=== PATIENT | male | born 2000 | race Caucasian/White ===

== ENCOUNTER 2019-11-30 21:56 | Emergency (ER) | payer SELFPAY ==
[2019-11-30] MEDS ORDERED: Sodium Chloride 0.9% 10 ML Syringe FLUSH PRN (22:05)
[2019-11-30] MEDS ORDERED: Sodium Chloride 0.9% 2.5 ML Syringe FLUSH PRN (22:05)
[2019-11-30 22:39] LABS: BLOOD UREA NITROGEN,BUN 16 mg/dL (7.0-18.0); CARBON DIOXIDE,CO2 24.1 mmol/L (21.0-32.0); CHLORIDE,CL 103 mmol/L (98-107); GLUCOSE RANDOM 63 mg/dL (74-106); POTASSIUM,K 3.1 mmol/L (3.5-5.1); SODIUM,NA 141 mmol/L (136-148)
--- NOTE | 2019-11-30 22:44 | CR ---
Chest: 2 views of the chest were obtained. Comparison: Prior chest x-ray of 02/16/13. Heart size and mediastinum are normal. Lungs are clear with no acute parenchymal change. Bony structures are unremarkable. Impression: 1. Nothing acute is seen on 2 view chest x-ray. Diagnostic code #1 This report was dictated in MDT
[2019-11-30 22:56] VITALS: BP 121/81; PULSE 83
--- NOTE | 2019-11-30 23:24 | EDM.PDOC ---
ED HPI GENERAL MEDICAL PROBLEM - General Chief Complaint: Chest Pain Stated Complaint: CHEST PAIN Time Seen by Provider: 11/30/19 21:58 Source of Information: Reports: Patient History Limitations: Reports: No Limitations - History of Present Illness INITIAL COMMENTS - FREE TEXT/NARRATIVE: 19-year-old male with no past medical history presenting with chest pressure and transient numbness to the lips and leg. Patient states that he was involved in a stressful argument with family members when he began experiencing chest pressure, this started about 1.5 to 2 hours ago. He had a similar episode for 5 days ago when he received some bad news about his grandmother breaking her hip. Earlier this evening after the chest pressure started, he began feeling some numbness around his lips and his left leg, this has since resolved and has not come back. He denies any shortness of breath, fever, cough, hemoptysis, recent leg swelling or pain. No prior history of venous thromboembolism, malignancy, recent surgery or trauma or immobilization. No history of coronary artery disease or any medical problems. No self treatment prior to arrival, no other complaints. - Related Data Allergies Allergy/AdvReac Type Severity Reaction Status Date / Time No Known Allergies Allergy Verified 11/30/19 22:23 Home Meds: Home Meds . [No Known Home Meds] 05/31/16 [History] Past Medical History HEENT History: Reports: None Cardiovascular History: Reports: None Respiratory History: Reports: None Gastrointestinal History: Reports: None Genitourinary History: Reports: None Musculoskeletal History: Reports: None Neurological History: Reports: None Psychiatric History: Reports: Anxiety Endocrine/Metabolic History: Reports: None Hematologic History: Reports: None Immunologic History: Reports: None Oncologic (Cancer) History: Reports: None Dermatologic History: Reports: None - Infectious Disease History Infectious Disease History: Reports: None Social & Family History - Family History Family Medical History: Noncontributory - Tobacco Use Smoking Status *Q: Current Every Day Smoker Years of Tobacco use: 3 Packs/Tins Daily: 1 - Caffeine Use Caffeine Use: Reports: Soda - Recreational Drug Use Recreational Drug Use: No ED ROS GENERAL - Review of Systems Review Of Systems: See Below Constitutional: Denies: Fever, Chills HEENT: Reports: No Symptoms Respiratory: Denies: Shortness of Breath Cardiovascular: Reports: Chest Pain. Denies: Edema, Lightheadedness, Palpitations, Syncope Endocrine: Reports: No Symptoms GI/Abdominal: Denies: Abdominal Pain, Nausea, Vomiting : Denies: Flank Pain Musculoskeletal: Denies: Back Pain Skin: Denies: Diaphoresis Neurological: Denies: Headache Psychiatric: Reports: No Symptoms ED EXAM, GENERAL - Physical Exam Exam: See Below Free Text/Narrative:: Vital signs reviewed. Nursing notes reviewed. Constitutional: Awake, alert, non-distressed. Head: Normocephalic, atraumatic. Eyes: EOMI, conjunctiva normal, no discharge, no scleral icterus. Ears, Nose, Throat: External ears and nose normal, moist oral mucosa. Cardiovascular: 2+ radial pulses bilaterally, capillary refill less than 2 seconds. RRR, no MRG. No lower extremity edema. Pulmonary: normal work of breathing, no accessory muscle use. CTA BL Abdomen/GI: Soft, nontender, nondistended, no guarding or rigidity, no masses. Musculoskeletal: No deformities. Integumentary: Appropriate color for ethnicity, warm, dry, no pallor or jaundice, no rash. Neurologic: Alert, answering questions appropriately, normal speech, no facial droop, moving all extremities well. Psychiatric: Appropriate mood and affect, normal thought process. EKG INTERPRETATION EKG Interpretation Comments: 12-Lead ECG Interpretation Acquired: 9:59 PM Rhythm: Sinus rhythm Rate: 67 bpm [place]: Normal Intervals: Normal Ectopy: None RV Strain: No obvious RV strain pattern. ST Segments/T-Waves: T wave inversions isolated to aVL Course - Vital Signs Text/Narrative:: Patient hemodynamically stable, afebrile, well-appearing, looks nontoxic. Differential diagnosis includes but is not limited to: ACS, pulmonary embolism, aortic dissection, acute systolic heart failure, pneumonia, pneumothorax, pericardial effusion, pleural effusion, pericarditis, endocarditis, esophageal rupture, GERD, drug-induced chest pain, chest wall pain, and many others. Description of chest pain in the context of an argument along with age and the fact that the patient has no medical history makes a malignant process quite unlikely. Heart score of 1, only risk factor is occasional tobacco use. Low suspicion for pulmonary embolism given lack of lower extremity swelling, lack of tachycardia or hypoxia, no tachypnea. Wells PE score of 0. Chest x-ray is clear, negative troponin. Lab work shows elevated total bilirubin and mild hypokalemia. No abdominal pain, nausea, or vomiting to warrant abdominal imaging at this point, abdomen is soft, nontender, nondistended. No fever or infectious symptoms to suggest pneumonia. No evidence of congestive heart failure by examination. Lungs are clear to auscultation. No murmur or friction rub, no evidence of endocarditis on exam. No history of recent vomiting or chest wall trauma. Patient will be given instructions about dietary recommendations to help improve potassium intake. Recommended plenty of fluids by mouth. We will have him fol low-up with your primary doctor in the next week or so to have his potassium and bilirubin rechecked. Strict emergency department return precautions were provided, patient indicated understanding. All questions were answered prior to departure. Discharged in good condition. HEART Score for Major Cardiac Events RESULT SUMMARY: 1 points Low Score (0-3 points) Risk of MACE of 0.9-1.7%. INPUTS: History > 0 = Slightly suspicious EKG > 0 = Normal Age > 0 = <45 Risk factors > 1 = 1-2 risk factors Initial troponin > 0 = ?normal limit Wells' Criteria for Pulmonary Embolism RESULT SUMMARY: 0.0 points Low risk group: 1.3% chance of PE in an ED population. Another study assigned scores ? 4 as PE Unlikely and had a 3% incidence of PE. INPUTS: Clinical signs and symptoms of DVT > 0 = No PE is #1 diagnosis OR equally likely > 0 = No Heart rate > 100 > 0 = No Immobilization at least 3 days OR surgery in the previous 4 weeks > 0 = No Previous, objectively diagnosed PE or DVT > 0 = No Hemoptysis > 0 = No Malignancy w/ treatment within 6 months or palliative > 0 = No Last Recorded V/S: Last Vital Signs Temp 35.9 C L 11/30/19 22:23 Pulse 83 11/30/19 22:56 Resp 12 11/30/19 22:56 BP 121/81 11/30/19 22:56 Pulse Ox 97 11/30/19 22:56 - Orders/Labs/Meds Orders: Active Orders 24 hr Category Date Time Status Cardiac Monitoring [RC] . DIRECTED Care 11/30/19 22:05 Active EKG 12 Lead [EKG Documentation Completion] [RC] STAT Care 11/30/19 22:15 Active Pulse Oximetry [RC] ASDIRECTED Care 11/30/19 22:05 Active Saline Lock Insert [OM.PC] Stat [facility] 11/30/19 22:05 Ordered Labs: Laboratory Tests 11/30/19 11/30/19 Range/Units 22:00 22:00 WBC 5.81 (4.0-11.0) K/uL RBC 5.25 (4.50-5.90) M/uL Hgb 15.4 (13.0-17.0) g/dL Hct 43.9 (38.0-50.0) % MCV 83.6 (80.0-98.0) fL MCH 29.3 (27.0-32.0) pg MCHC 35.1 (31.0-37.0) g/dL RDW Std Deviation 37.0 (28.0-62.0) fl RDW Coeff of Elly 12 (11.0-15.0) % Plt Count 269 (150-400) K/uL MPV 9.30 (7.40-12.00) fL Neut % (Auto) 37.8 L (48.0-80.0) % Lymph % (Auto) 53.0 H (16.0-40.0) % Camp % (Auto) 6.4 (0.0-15.0) % Eos % (Auto) 1.9 (0.0-7.0) % Baso % (Auto) 0.9 (0.0-1.5) % Neut # (Auto) 2.2 (1.4-5.7) K/uL Lymph # (Auto) 3.1 H (0.6-2.4) K/uL Camp # (Auto) 0.4 (0.0-0.8) K/uL Eos # (Auto) 0.1 (0.0-0.7) K/uL Baso # (Auto) 0.1 (0.0-0.1) K/uL Nucleated RBC % 0.0 /100WBC Nucleated RBCs # 0 K/uL Sodium 141 (136-148) mmol/L Potassium 3.1 L (3.5-5.1) mmol/L Chloride 103 (98-107) mmol/L Carbon Dioxide 24.1 (21.0-32.0) mmol/L BUN 16 (7.0-18.0) mg/dL Creatinine 1.3 (0.8-1.3) mg/dL Est Cr Clr Drug Dosing 92.27 mL/min Estimated GFR (MDRD) > 60.0 ml/min Glucose 63 L (74-106) mg/dL Calcium 9.6 (8.5-10.1) mg/dL Total Bilirubin 1.7 H (0.2-1.0) mg/dL AST 17 (15-37) IU/L ALT 32 (14-63) IU/L Alkaline Phosphatase 69 (46-116) U/L Troponin I < 0.050 (0.000-0.056) ng/mL Total Protein 7.6 (6.4-8.2) g/dL Albumin 4.9 (3.4-5.0) g/dL Globulin 2.7 (2.6-4.0) g/dL Albumin/Globulin Ratio 1.8 H (0.9-1.6) Meds: Medications Discontinued Medications Generic Name Dose Route Start Last Admin Trade Name Freq PRN Reason Stop Dose Admin Sodium Chloride 10 ml 11/30/19 22:05 Saline Flush FLUSH ASDIRECTED PRN Keep Vein Open Sodium Chloride 2.5 ml 11/30/19 22:05 Saline Flush FLUSH ASDIRECTED PRN Keep Vein Open Departure - Departure Time of Disposition: 23:21 Disposition: Home, Self-Care 01 Condition: Good Clinical Impression: Atypical chest pain, Elevated bilirubin, Hypokalemia Instructions: Chest Wall Pain, [id number], Nonspecific Chest Pain, Adult, Potassium Content of Foods Referrals: [facility] [Provider Group] - 1 Week (For follow-up of your chest pain, and to have your bilirubin and potassium levels rechecked.) Forms: ED Department Discharge Additional Instructions: Thank you for choosing the [facility] emergency department in [place] for your medical needs today. It was a pleasure caring for you. You were seen in the emergency department for chest pain. At this point, your EKG, blood work, and x-rays look reassuring. There is no evidence of a heart attack and your low risk for heart attack, a heart problem, or a blood clot. I am comfortable with you going home tonight. I recommend [id number] Tyleno/ Motrin as directed on package for pain. Come back to the ER if your pain gets worse or if you have trouble breathing. Your blood work did show that your potassium level is slightly low. We will give you some recommendations about certain foods to eat to help raise your potassium. Also your bilirubin, and liver function test was slightly elevated. Since you are not having any abdominal pain, we do not need to perform imaging of the abdomen at this point. I would like for you to follow-up with a primary medical doctor in the next 1 to 2 weeks to have your potassium and bilirubin levels rechecked. If your b ilirubin level remains elevated, your doctor may recommend an ultrasound or CT scan to refer you to a specialist. Please return the emergency department immediately if your symptoms worsen or if you feel worse. The following information is given to patients seen in the emergency department who are being discharged. This information is to outline your options for follow-up care. We provide all patients seen in our emergency department with a follow-up referral. The need for follow-up, as well as the timing and circumstances, are variable depending upon the specifics of your emergency department visit. If you don't have a primary care physician on staff, we will provide you with a referral. We always advise you to contact your personal physician following an emergency department visit to inform them of the circumstance of the visit and for follow-up with them and/or the need for any referrals to a consulting specialist. The emergency department will also refer you to a specialist when appropriate. This referral assures that you have the opportunity for follow-up care with a specialist. All of these measure are taken in an effort to provide you with optimal care, which includes your follow-up. Under all circumstances we always encourage you to contact your private physician who remains a resource for coordinating your care. When calling for follow-up care, please make the office aware that this follow-up is from your recent emergency room visit. If for any reason you are refused follow-up, please contact the [facility] Emergency Department at and asked to speak to the emergency department charge nurse. If you do not have a primary care physician that is caring for you, you can contact these clinics below to set up an appointment to establish care: [facility] [address] [place] [address] [facility] [address] [place] [address] Sepsis Event Note (ED) - Evaluation Sepsis Screening Result: No Definite Risk - Focused Exam Vital Signs: Vital Signs Temp Pulse Resp BP Pulse Ox 11/30/19 22:56 83 12 121/81 97 11/30/19 22:23 35.9 C L 84 20 136/96 H 99 - My Orders Last 24 Hours: My Active Orders 11/30/19 22:05 Cardiac Monitoring [RC] . DIRECTED Pulse Oximetry [RC] ASDIRECTED Saline Lock Insert [OM.PC] Stat 11/30/19 22:15 EKG 12 Lead [EKG Documentation Completion] [RC] STAT - Assessment/Plan Last 24 Hours: My Active Orders 11/30/19 22:05 Cardiac Monitoring [RC] . DIRECTED Pulse Oximetry [RC] ASDIRECTED Saline Lock Insert [OM.PC] Stat 11/30/19 22:15 EKG 12 Lead [EKG Documentation Completion] [RC] STAT
== END 2019-11-30 23:40 | disposition home or self-care (01) ==
LOC: MW.ED 21:56
DX: R07.89 Other chest pain (principal); E87.6 Hypokalemia; E80.6 Other disorders of bilirubin metabolism; F17.210 Nicotine dependence, cigarettes, uncomplicated
CPT/HCPCS: 36415; 71046; 71046-26; 80053; 84484; 85025; 93005; 99284; 99285-25

== ENCOUNTER 2022-07-19 17:59 | Emergency (ER) | payer SELFPAY | END 2022-07-19 19:11 | disposition home or self-care (01) | LOC: MW.ED 17:59 | DX: S67.22XA Crushing injury of left hand, initial encounter (principal); S60.222A Contusion of left hand, initial encounter; W01.198A Fall on same level from slipping, tripping and stumbling with subsequent striking against other object, initial encounter | CPT/HCPCS: 73110-26-LT; 73110-LT; 73130-26-LT; 73130-LT; 99283 ==

== ENCOUNTER 2025-02-08 18:19 | Emergency (ER) | payer MEDICAID, OTHER ==
[2025-02-08 19:18] LABS: APPEARANCE,URINE CLEAR; GLUCOSE,URINE NEGATIVE (NEGATIVE); OCCULT BLOOD,URINE NEGATIVE (NEGATIVE)
[2025-02-08 20:48] LABS: C. TRACHOMATIS BY PCR NOT DETECTED; N. GONORRHOEAE BY PCR NOT DETECTED
== END 2025-02-08 21:12 | disposition home or self-care (01) ==
LOC: MW.ED 18:19
DX: R30.0 Dysuria (principal); Z11.3 Encounter for screening for infections with a predominantly sexual mode of transmission
CPT/HCPCS: 81003; 87491; 87591; 99283